=== PATIENT | female | born 1975 | race American Indian/Alaskan Native ===

== ENCOUNTER 2016-10-03 17:30 | Emergency (ER) | payer MEDICAID ==
[2016-10-03 18:10] LABS: Bilirubin,Urine NEG (Negative); Blood,Urine LG (Negative); Ketones,Urine NEG (Negative); Leukocyte Esterase,Urine TR (Negative); Mucus,Urine 3+ /HPF; Nitrite,Urine NEG (Negative); Urobilinogen,Urine < 2.0 mg/dL (<2.0)
[2016-10-03 18:11] LABS: Basophils % (Auto) 0.3 % (0.0-1.8); Hematocrit 37.5 % (30.3-42.9); Hemoglobin 12.3 gm/dl (10.1-14.3); Mean Corpuscular HGB Conc 33 % (30-34); Mean Corpuscular Hemoglobin 29 pg (28-32); Mean Corpuscular Volume 88 fl (79-97); Platelet Count 302 K/mm3 (140-440); Red Blood Count 4.24 M/mm3 (3.65-5.03); Red Cell Distribution Width 16.3 % (13.2-15.2); White Blood Count 13.9 K/mm3 (4.5-11.0)
[2016-10-03 18:13] LABS: Protein,Urine >500 mg/dL (Negative); RBC,Urine > 182.0 /HPF (0.0-6.0)
[2016-10-03] MEDS ORDERED: MORPHINE IM PRN (18:19)
[2016-10-03] MEDS ORDERED: ZOFRAN IM PRN (18:19)
[2016-10-03] MEDS ORDERED: ZOFRAN IV ONE (18:24)
[2016-10-03] MEDS ORDERED: TORADOL ONE (18:25)
--- NOTE | 2016-10-03 18:25 | Emergency Department Report ---
HPI - General Chief Complaint: Vaginal Bleeding Time Seen by Provider: 10/03/16 18:07 - HPI HPI: Room 2 The patient is a 41-year-old female presenting with a chief complaint of right pelvic pain and vaginal bleeding. Patient states she's had right pelvic pain intermittently for months but return to days ago. Patient describes the pain as a pressure. The patient states 2 days ago she developed vaginal bleeding that was having. The patient states she went to 18 pads yesterday. The patient gives her pain score of 10/10. Patient also admits to nausea Location: Pelvis Duration: 2 days Quality: Pressure Severity: 10/10 Modifying factors: [see above] Context: [see above] Mode of transportation: Patient drove herself to the emergency department and currently no visitors present. The patient states she is contacting a family member to come to the hospital ED Past Medical Hx - Past Medical History Previous Medical History?: No - Surgical History Hx Cholecystectomy: Yes Hx Appendectomy: Yes Additional Surgical History: Right salpingectomy secondary to ectopic , left ovarian cyst removal, lysis of adhesions, - Family History Family history: no significant - Social History Smoking Status: Current Every Day Smoker Substance Use Type: Alcohol (occasional), Marijuana - Medications Home Medications: Home Medications Medication Instructions Recorded Confirmed Last Taken Type HYDROcodone/APAP 5-325 [[place] 1 each PO Q6HR PRN #14 tablet 10/03/16 Unknown Rx 5/325] Ibuprofen [Motrin 800 MG tab] 800 mg PO Q8HR PRN #20 tablet 10/03/16 Unknown Rx ED Review of Systems ROS: Stated complaint: ABD PAIN/VAGINAL BLEEDING/VOMITING Other details as noted in HPI Comment: All other systems reviewed and negative Constitutional: denies: chills, fever Eyes: denies: eye pain, eye discharge, vision change ENT: denies: ear pain, throat pain Respiratory: denies: cough, shortness of breath, wheezing Cardiovascular: denies: chest pain, palpitations Endocrine: no symptoms reported Gastrointestinal: abdominal pain, nausea, vomiting Genitourinary: abnormal menses Musculoskeletal: back pain Skin: denies: rash, lesions Neurological: denies: headache, weakness, paresthesias Psychiatric: denies: anxiety, depression Hematological/Lymphatic: denies: easy bleeding, easy bruising Physical Exam - Physical Exam Vital Signs: Vital Signs 10/03/16 17:34 Temperature 98.9 F Pulse Rate 87 Respiratory 20 Rate Blood Pressure 136/94 O2 Sat by Pulse 98 Oximetry Physical Exam: GENERAL: The patient is well-developed well-nourished female lying on stretcher appearing to be in mild discomfort. [] HEENT: Normocephalic. Atraumatic. Extraocular motions are intact. Patient has moist mucous membranes. NECK: Supple. Trachea midline CHEST/LUNGS: Clear to auscultation. There is no respiratory distress noted. HEART/CARDIOVASCULAR: Regular. There is no tachycardia. There is no gallop rub or murmur. ABDOMEN: Abdomen is soft, with mild discomfort to palpation in the right upper quadrant and right lower quadrant. Patient has normal bowel sounds. There is no abdominal distention. SKIN: There is no rash. There is no edema. There is no diaphoresis. NEURO: The patient is awake, alert, and oriented. The patient is cooperative. The patient has normal speech MUSCULOSKELETAL: There is no CVA tenderness. There is no evidence of acute injury. PELVIC: zero to scant blood seen in the vaginal vault ED Course Vital Signs 10/03/16 17:34 Temperature 98.9 F Pulse Rate 87 Respiratory 20 Rate Blood Pressure 136/94 O2 Sat by Pulse 98 Oximetry - Consultations Consultation #1: 10/03/16 21:25 LEATHER DRESSER paged 21:41 Case discussed with LEATHER DRESSER Dr. Brasher. Will evaluate patient. 23:[address] Brasher after she has evaluated patient. States the patient may go home and will likely follow-up with her 10/03/16 21:43 10/03/16 23:06 ED Medical Decision Making - Lab Data Result diagrams: 10/03/16 17:44 Laboratory Tests 10/03/16 10/03/16 10/03/16 17:44 17:45 17:50 WBC 13.9 H RBC 4.24 Hgb 12.3 Hct 37.5 MCV 88 MCH 29 MCHC 33 RDW 16.3 H Plt Count 302 Lymph % (Auto) 22.1 [place] % (Auto) 9.4 H Eos % (Auto) 0.0 Baso % (Auto) 0.3 Lymph # 3.1 [place] # 1.3 H Eos # 0.0 Baso # 0.0 Seg Neutrophils % 68.2 Seg Neutrophils # 9.5 H Urine Color Yellow Urine Turbidity Turbid Urine pH 5.0 Ur Specific [place] 1.034 H Urine Protein >500 Urine Glucose (UA) 50 Urine Ketones Neg Urine Blood Lg Urine Nitrite Neg Urine Bilirubin Neg Urine Urobilinogen < 2.0 Ur Leukocyte Esterase Tr Urine WBC (Auto) 77.0 H Urine RBC (Auto) > 182.0 Urine WBC Clumps 3+ Urine Mucus 3+ Urine HCG, Qual Negative Blood Type O POSITIVE Antibody Screen Negative - Radiology Data Radiology results: report reviewed (pelvic ultrasound, CT abdomen and pelvis), image reviewed (pelvic ultrasound, CT abdomen and pelvis) Pelvic ultrasound (read by radiologist)-rim calcified fibroid at the posterior fundal margin the uterus measuring 3.5 cm. No other uterine lesions. The ovaries are not visualized. CT abdomen and pelvis (read by radiologist)-no gross inflammatory changes of the abdomen and pelvis. Large and small bowel is normal in caliber. Appendix is not visualized however there is no pericecal stranding or fluid to suggest acute inflammation. No obstructive uropathy or urolithiasis. Redemonstration of rim calcified fundal fibroid measuring 3.6 cm. - Differential Diagnosis ectopic , pyelonephritis, renal colic, ovarian torsion Critical care attestation.: If time is entered above; I have spent that time in minutes in the direct care of this critically ill patient, excluding procedure time. ED Disposition Clinical Impression: Pelvic pain, UTI (urinary tract infection) Disposition: DISCHARGED TO HOME OR SELFCARE Is pt being admited?: No Does the pt Need Aspirin: No Condition: Stable Instructions: Chronic Pelvic Pain in Women (ED) Additional Instructions: Return to the emergency department immediately should you develop worsening symptoms, fever, inability to tolerate food or liquid or any other concerns. Prescriptions: HYDROcodone/APAP 5-325 [[place] 5/325] 1 each PO Q6HR PRN #14 tablet PRN Reason: Pain Ibuprofen [Motrin 800 MG tab] 800 mg PO Q8HR PRN #20 tablet PRN Reason: Pain Referrals: PRIMARY CARE, [Primary Care Provider] - 3-5 Days Time of Disposition: 23:08
[2016-10-03] MEDS ORDERED: TORADOL IV ONE (18:27)
[2016-10-03] MEDS ORDERED: REGLAN ONE (19:19)
[2016-10-03] MEDS ORDERED: REGLAN IV ONE (19:21)
--- NOTE | 2016-10-03 19:23 | Ultrasound Report ---
FINAL REPORT EXAM: US PELVIC COMPLETE HISTORY: vaginal bleeding, right pelvic pain COMPARISON: None available. TECHNIQUE: Several real-time grayscale and color Doppler images were obtained. Transabdominal and transvaginal exam. FINDINGS: Uterus measures 12.1 x 8.3 x 7.9 centimeters. Endometrial stripe measures 8-9 millimeters in thickness within normal limits. At the posterior fundal margin the uterus is a partially calcified fibroid measuring 3.2 by 3.1 by 3.5 centimeters. No other uterine lesions. 1.5 centimeter nabothian cyst in the cervix, benign finding. No adnexal masses are demonstrated. The ovaries are not visualized. No free fluid. IMPRESSION: Rim calcified fibroid at the posterior and fundal margin the uterus measuring 3.5 centimeters. No other uterine lesions. The ovaries are not visualized.
--- NOTE | 2016-10-03 20:01 | Cat Scan Report ---
FINAL REPORT EXAM: CT ABDOMEN PELVIS WO CON HISTORY: right lower quadrant pain, nausea vomiting COMPARISON: Pelvic ultrasound from today. TECHNIQUE: Contiguous axial images were obtained. Additional sagittal and coronal reformatted images were obtained. FINDINGS: Lung bases are clear. Gallbladder surgically absent. Liver, spleen, pancreas and adrenal glands are grossly unremarkable. No nephrolithiasis or hydronephrosis. 1.2 centimeter medial left renal cyst. Aorta and IVC are normal in caliber. No distal ureteral urinary bladder calculi. Uterus is enlarged with rim calcified fibroid along the fundal region of the uterus as seen on earlier ultrasound measuring approximately 3.6 x 3.0 centimeters. Re-demonstration of nabothian cyst in the cervix. Ovaries are not well visualized. No free fluid or pathologic lymphadenopathy. Large and small bowel loops normal in caliber. Majority of bowel loops are decompressed. Appendix is not visualized. However, there is no pericecal stranding or fluid to suggest acute inflammation. Bony pelvis and lumbar spine are grossly intact. IMPRESSION: No gross inflammatory changes of the abdomen and pelvis. Large and small bowel loops normal in caliber. Appendix is not visualized. However, there is no pericecal stranding or fluid to suggest acute inflammation. No obstructive uropathy or urolithiasis. Re-demonstration of rim calcified fundal fibroid measuring 3.6 centimeters.
[2016-10-03] MEDS ORDERED: BACTRIM DS PO ONE (21:45)
[2016-10-03] MEDS ORDERED: PHENERGAN PO ONE (21:45)
--- NOTE | 2016-10-03 23:12 | Consultation ---
History of Present Illness - Reason for Consult Consult date: 10/03/16 abdominal pain Requesting physician: ANGEL TEMPLETON - History of Present Illness 41y/o BF presents to the ED with the complaint of RLQ pain. She reports a history of this pain for the last 4 months but states increased intensity with her menses. Has regular menses that lasts 3 days. States this menses was much heavier than usual with passage of clots. The patient has been evaluated by community nutrition educator was placed on meds to control her bleeding. The patient is unsure of name of the medication. Surgical options had been discussed with the patient. She also complains of nausea and vomiting. CT scan and u/s demonstrated findings of a myoma. Ovaries could not be identified Past History Past Medical History: No medical history Past Surgical History: appendectomy, cholecystectomy, Other (salpingectomy for ectopic ) Medications and Allergies Allergies Allergy/AdvReac Type Severity Reaction Status Date / Time amoxicillin Allergy Unknown Verified 10/03/16 17:34 Penicillins Allergy Unknown Verified 10/03/16 17:34 Tetracyclines Allergy Unknown Verified 10/03/16 17:34 Active Meds: Active Medications Morphine Sulfate (Morphine) 8 mg IM ONCE PRN PRN Reason: Pain Last Admin: 10/03/16 19:40 Dose: 8 mg Review of Systems All systems: negative Gastrointestinal: nausea, vomiting Genitourinary Female: pelvic pain, other (menorrhagia) Menstruation: currently menstrual, menses 1-7 days Musculoskeletal: low back pain Exam - Constitutional Vitals: Temp Pulse Resp BP Pulse Ox 98.9 F 87 22 150/93 99 10/03/16 17:34 10/03/16 17:34 10/03/16 18:39 10/03/16 18:36 10/03/16 18:39 General appearance: Present: mild distress - Respiratory Respiratory effort: normal - Abdominal General gastrointestinal: Present: soft, other (RLQ with deep palpation; no guarding). Absent: rigid Female genitourinary: Present: deferred Results - Labs CBC & Chem 7: 10/03/16 17:44 Labs: Abnormal lab results 10/03/16 10/03/16 Range/Units 17:44 17:50 WBC 13.9 H (4.5-11.0) K/mm3 RDW 16.3 H (13.2-15.2) % Gregory % (Auto) 9.4 H (0.0-7.3) % Gregory # 1.3 H (0.0-0.8) K/mm3 Seg Neutrophils # 9.5 H (1.8-7.7) K/mm3 Ur Specific [place] 1.034 H (1.003-1.030) Urine WBC (Auto) 77.0 H (0.0-6.0) /HPF Assessment and Plan - Patient Problems (1) Pelvic pain Current Visit: Yes Status: Acute Plan to address problem: patient is clinically stable with improvement in symptoms medical and surgical options discussed with patient recommend outpatient evaluation hospitalization is not indicated (2) Dysmenorrhea Current Visit: Yes Status: Acute (3) Menorrhagia Current Visit: Yes Status: Acute (4) Leiomyoma Current Visit: Yes Status: Acute
[2016-10-03 23:32] VITALS: BP 181/79
== END 2016-10-03 23:33 | disposition home or self-care (01) ==
LOC: ED 17:30
DX: N39.0 Urinary tract infection, site not specified (principal); Z90.49 Acquired absence of other specified parts of digestive tract; F17.200 Nicotine dependence, unspecified, uncomplicated; F12.10 Cannabis abuse, uncomplicated
CPT/HCPCS: 36415; 74176; 76830; 76856; 81001; 81025; 85025; 86850; 86900; 86901; 96372; 96374; 96375; 99284; J1885; J2270; J2405; J2765; Q0169

== ENCOUNTER 2017-01-20 22:22 | Emergency (ER) | payer SELFPAY ==
[2017-01-20 23:05] LABS: Basophils % (Auto) 0.4 % (0.0-1.8); Eosinophils % (Auto) 0.2 % (0.0-4.3); Hematocrit 37.3 % (30.3-42.9); Hemoglobin 12.2 gm/dl (10.1-14.3); Mean Corpuscular HGB Conc 33 % (30-34); Mean Corpuscular Hemoglobin 30 pg (28-32); Mean Corpuscular Volume 91 fl (79-97); Platelet Count 278 K/mm3 (140-440); Red Blood Count 4.09 M/mm3 (3.65-5.03); Red Cell Distribution Width 14.6 % (13.2-15.2); White Blood Count 10.7 K/mm3 (4.5-11.0)
[2017-01-20 23:34] LABS: Alanine Aminotransferase 12 units/L (7-56); Albumin 4.4 g/dL (3.9-5); Albumin/Globulin Ratio 1.4 %; Alkaline Phosphatase 68 units/L (35-129); Anion Gap 21 mmol/L; BUN/Creatinine Ratio 24.44; Blood Urea Nitrogen 22 mg/dL (7-17); Carbon Dioxide 23 mmol/L (22-30); Chloride 98.6 mmol/L (98-107); Glucose 205 mg/dL (65-100); Potassium 3.2 mmol/L (3.6-5.0); Sodium 139 mmol/L (137-145); Total Protein 7.6 g/dL (6.3-8.2)
--- NOTE | 2017-01-21 01:53 | Emergency Department Report ---
ED General Adult HPI - General Chief complaint: Abdominal Pain Stated complaint: VAGINAL BLEEDING/ABD PAIN/DIZZY Time Seen by Provider: 01/21/17 01:52 Source: patient, RN notes reviewed Mode of arrival: Ambulatory Limitations: No Limitations - History of Present Illness Initial comments: This is a 41-year-old female. She is previously unknown to me. She reports that she does not have a primary care doctor. She does not have a local intermodal owner operator truck driver. She denies significant past medical history. Surgical history includes appendectomy, right salpingectomy, left ovarian cyst, lysis of adhesions The patient presents to the ER with diffuse abdominal pain, nausea, vomiting, vaginal bleeding. The abdominal pain is crampy in nature. Its been going on for the past few days. It does not radiate anywhere. He has no exacerbating or relieving factors. Emesis is yellow, nonbloody and nonbilious. She denies irritative and obstructive urinary symptoms. She denies vaginal discharge. -: Gradual Location: abdomen, pelvis, genitals Quality: aching Consistency: intermittent Improves with: rest Worsens with: eating, movement Associated Symptoms: loss of appetite, malaise, nausea/vomiting, weakness. denies: confusion, chest pain - Related Data Previous Rx's Medication Instructions Recorded Last Taken Type HYDROcodone/APAP 5-325 [[place] 1 each PO Q6HR PRN #14 tablet 10/03/16 Unknown Rx 5/325] Ibuprofen [Motrin 800 MG tab] 800 mg PO Q8HR PRN #20 tablet 10/03/16 Unknown Rx Sulfamethoxazole/Trimethoprim 1 each PO BID #20 tablet 10/03/16 Unknown Rx [Bactrim DS TAB] Ketorolac [Toradol] 10 mg PO Q6H PRN #20 tablet 01/21/17 Unknown Rx Ondansetron [Zofran Odt] 4 mg PO QID PRN #20 tab.rapdis 01/21/17 Unknown Rx oxyCODONE [Roxicodone] 5 mg PO Q6HR PRN #15 tablet 01/21/17 Unknown Rx Allergies Allergy/AdvReac Type Severity Reaction Status Date / Time amoxicillin Allergy Unknown Verified 10/03/16 17:34 Penicillins Allergy Unknown Verified 10/03/16 17:34 Tetracyclines Allergy Unknown Verified 10/03/16 17:34 ED Review of Systems ROS: Stated complaint: VAGINAL BLEEDING/ABD PAIN/DIZZY Other details as noted in HPI Constitutional: malaise. denies: fever Eyes: denies: vision change ENT: denies: epistaxis Respiratory: denies: cough Cardiovascular: denies: chest pain Gastrointestinal: abdominal pain, nausea Genitourinary: dysuria, abnormal menses Musculoskeletal: denies: back pain Skin: denies: lesions Neurological: weakness Psychiatric: anxiety ED Past Medical Hx - Past Medical History Previous Medical History?: No - Surgical History Past Surgical History?: Yes Hx Cholecystectomy: Yes Hx Appendectomy: Yes Additional Surgical History: Right salpingectomy secondary to ectopic , left ovarian cyst removal, lysis of adhesions, - Social History Smoking Status: Current Every Day Smoker Substance Use Type: None - Medications Home Medications: Home Medications Medication Instructions Recorded Confirmed Last Taken Type HYDROcodone/APAP 5-325 [[place] 1 each PO Q6HR PRN #14 tablet 10/03/16 Unknown Rx 5/325] Ibuprofen [Motrin 800 MG tab] 800 mg PO Q8HR PRN #20 tablet 10/03/16 Unknown Rx Sulfamethoxazole/Trimethoprim 1 each PO BID #20 tablet 10/03/16 Unknown Rx [Bactrim DS TAB] Ketorolac [Toradol] 10 mg PO Q6H PRN #20 tablet 01/21/17 Unknown Rx Ondansetron [Zofran Odt] 4 mg PO QID PRN #20 tab.rapdis 01/21/17 Unknown Rx oxyCODONE [Roxicodone] 5 mg PO Q6HR PRN #15 tablet 01/21/17 Unknown Rx ED Physical Exam - General Limitations: No Limitations General appearance: alert, in distress - Head Head exam: Present: atraumatic, normocephalic - Eye Eye exam: Present: normal appearance, EOMI. Absent: nystagmus - ENT ENT exam: Present: normal exam, normal orophraynx, mucous membranes moist, normal external ear exam - Neck Neck exam: Present: normal inspection, full ROM. Absent: tenderness, meningismus - Respiratory Respiratory exam: Present: normal lung sounds bilaterally. Absent: respiratory distress, wheezes, rales, rhonchi, stridor, chest wall tenderness, accessory muscle use, decreased breath sounds, prolonged expiratory - Cardiovascular Cardiovascular Exam: Present: regular rate, normal rhythm, normal heart sounds. Absent: bradycardia, tachycardia, irregular rhythm, systolic murmur, diastolic murmur, rubs, gallop - GI/Abdominal GI/Abdominal exam: Present: soft, normal bowel sounds. Absent: distended, tenderness, guarding, rebound, rigid, pulsatile mass - External exam: Present: normal external exam Speculum exam: Present: vaginal bleeding Bi-manual exam: Present: normal bi-manual exam, other (escorted by MAYA Deluca). Absent: cervical motion tendernes, adnexal tenderness, adnexal mass - Extremities Exam Extremities exam: Present: normal inspection, full ROM, normal capillary refill. Absent: tenderness, pedal edema, joint swelling, calf tenderness - Back Exam Back exam: Present: normal inspection, full ROM. Absent: tenderness, CVA tenderness (R), CVA tenderness (L), muscle spasm, paraspinal tenderness, vertebral tenderness - Neurological Exam Neurological exam: Present: alert, oriented X3, normal gait, other (Extraocular movements intact. Tongue midline. No facial droop. Facial sensation intact to light touch in the V1, V2, V3 distribution bilaterally. 5 and 5 strength in 4 extremities.. Sensation is intact to light touch in 4 extremities.). Absent : motor sensory deficit - Psychiatric Psychiatric exam: Present: anxious - Skin Skin exam: Present: warm, dry, intact, normal color. Absent: rash ED Course Vital Signs 01/20/17 01/21/17 01/21/17 22:43 02:00 02:11 Temperature 99.0 F Pulse Rate 75 Respiratory 24 Rate Blood Pressure 133/104 144/87 O2 Sat by Pulse 100 100 100 Oximetry 01/21/17 02:21 Temperature Pulse Rate Respiratory Rate Blood Pressure 148/89 O2 Sat by Pulse 100 Oximetry - Reevaluation(s) Reevaluation #1: 01/21/17 02:59 Differential diagnosis: Dysfunctional uterine bleeding, endometriosis, bowel obstruction Assessment and plan: 41-year-old female with abdominal pain, nausea, vomiting, vaginal bleeding. She is getting a low-grade temperature of 99, otherwise has reassuring vital signs and an unremarkable physical examination. Her abdomen is soft and benign, with no rebound, guarding or peritoneal signs. Lower, she appears to be very uncomfortable. She will be treated aggressively. We will obtain a pelvic ultrasound and a CT scan of the abdomen and pelvis. We will reassess after initial data points. Reevaluation #2: 01/21/17 04:[address] scan of the abdomen pelvis demonstrated numerous fibroids. Pelvic ultrasound demonstrates fibroids. Given lack of adnexal tenderness, clinically I don't think the patient has torsion. Her pain is improved. She will be discharged pain medication, nausea medication, instructions to follow up with outpatient gynecology. ED Medical Decision Making - Lab Data Result diagrams: 01/20/17 22:52 01/20/17 22:52 Vital Signs 01/20/17 01/21/17 01/21/17 22:43 02:00 02:11 Temperature 99.0 F Pulse Rate 75 Respiratory 24 Rate Blood Pressure 133/104 144/87 O2 Sat by Pulse 100 100 100 Oximetry 01/21/17 02:21 Temperature Pulse Rate Respiratory Rate Blood Pressure 148/89 O2 Sat by Pulse 100 Oximetry Temp Pulse Resp BP Pulse Ox 99.0 F 75 24 148/89 100 01/20/17 22:43 01/20/17 22:43 01/20/17 22:43 01/21/17 02:21 01/21/17 02:21 Labs 01/20/17 01/20/17 01/21/17 22:52 22:52 01:27 WBC 10.7 RBC 4.09 Hgb 12.2 Hct 37.3 MCV 91 MCH 30 MCHC 33 RDW 14.6 Plt Count 278 Lymph % (Auto) 24.2 [place] % (Auto) 5.0 Eos % (Auto) 0.2 Baso % (Auto) 0.4 Lymph # 2.6 [place] # 0.5 Eos # 0.0 Baso # 0.0 Seg Neutrophils % 70.2 H Seg Neutrophils # 7.5 Sodium 139 Potassium 3.2 L Chloride 98.6 Carbon Dioxide 23 Anion Gap 21 BUN 22 H Creatinine 0.9 Estimated GFR > 60 BUN/Creatinine Ratio 24.44 Glucose 205 H Calcium 9.0 Total Bilirubin 0.30 AST 14 ALT 12 Alkaline Phosphatase 68 Total Protein 7.6 Albumin 4.4 Albumin/Globulin Ratio 1.4 HCG, Quant Urine Color Red Urine Turbidity Cloudy Urine pH 6.0 Ur Specific [place] 1.030 Urine Protein 100 mg/dl Urine Glucose (UA) 50 Urine Ketones Neg Urine Blood Lg Urine Nitrite Neg Ur Reducing Substances Not Reportable Urine Bilirubin Neg Urine Ictotest Not Reportable Urine Urobilinogen < 2.0 Ur Leukocyte Esterase Sm Urine WBC (Auto) > 182.0 H Urine RBC (Auto) > 182.0 U Epithel Cells (Auto) 6.0 Urine Mucus 2+ Urine HCG, Qual Negative Urine Opiates Screen Urine Methadone Screen Ur Barbiturates Screen Ur Phencyclidine Scrn Ur Amphetamines Screen U Benzodiazepines Scrn Urine Cocaine Screen U Marijuana (THC) Screen 01/21/17 01/21/17 01:45 Unknown WBC RBC Hgb Hct MCV MCH MCHC RDW Plt Count Lymph % (Auto) [place] % (Auto) Eos % (Auto) Baso % (Auto) Lymph # [place] # Eos # Baso # Seg Neutrophils % Seg Neutrophils # Sodium Potassium Chloride Carbon Dioxide Anion Gap BUN Creatinine Estimated GFR BUN/Creatinine Ratio Glucose Calcium Total Bilirubin AST ALT Alkaline Phosphatase Total Protein Albumin Albumin/Globulin Ratio HCG, Quant < 2 Urine Color Urine Turbidity Urine pH Ur Specific [place] Urine Protein Urine Glucose (UA) Urine Ketones Urine Blood Urine Nitrite Ur Reducing Substances Urine Bilirubin Urine Ictotest Urine Urobilinogen Ur Leukocyte Esterase Urine WBC (Auto) Urine RBC (Auto) U Epithel Cells (Auto) Urine Mucus Urine HCG, Qual Urine Opiates Screen Presumptive negative Urine Methadone Screen Presumptive negative Ur Barbiturates Screen Presumptive positive Ur Phencyclidine Scrn Presumptive negative Ur Amphetamines Screen Presumptive negative U Benzodiazepines Scrn Presumptive negative Urine Cocaine Screen Presumptive negative U Marijuana (THC) Screen Presumptive positive - EKG Data -: EKG Interpreted by In - EKG Data 01/21/17 03:00 Normal sinus, 69 beats per minute, motion artifact, QTC 477 ms, not morphologically consistent with STEMI, there is no prior EKG available for comparison. - Radiology Data Radiology results: report reviewed, image reviewed Noncontrast CT scan of the abdomen and pelvis: No acute disease. Fibroid disease noted. Transvaginal ultrasound demonstrates numerous fibroids. Critical care attestation.: If time is entered above; I have spent that time in minutes in the direct care of this critically ill patient, excluding procedure time. ED Disposition Clinical Impression: Dysmenorrhea, Pelvic pain, Leiomyoma Disposition: DISCHARGED TO HOME OR SELFCARE Is pt being admited?: No Does the pt Need Aspirin: No Condition: Stable Instructions: Uterine Fibroids (ED) Additional Instructions: Cultures were sent today, results will be available in the next 3-5 days. Have your intermodal owner operator truck driver contact the medical records department to obtain culture results. Take the pain medication, nausea medication as directed. Follow-up with a intermodal owner operator truck driver within the next week. Laboratory studies were unremarkable. Ultrasound and CAT scan have suggested that symptoms are coming from symptomatic fibroids. Return to the ER right away with new pain, worsening pain, migration of pain, fevers or chills, intractable nausea or vomiting, inability to tolerate liquid feeds. Referrals: PRIMARY CAREMD [Primary Care Provider] - 3-5 Days [facility] [Provider Group] - 3-5 Days [facility] [Provider Group] - 3-5 Days [facility] [Provider Group] - 3-5 Days
[2017-01-21] MEDS ORDERED: PEPCID IV ONE (01:59)
[2017-01-21] MEDS ORDERED: MORPHINE IV ONE (01:59)
[2017-01-21] MEDS ORDERED: ZOFRAN IV ONE (01:59)
[2017-01-21 02:18] LABS: Urine Drugs of Abuse Note Disclamer
[2017-01-21 02:33] VITALS: BP 148/89
[2017-01-21 02:40] LABS: Bilirubin,Urine NEG (Negative); Blood,Urine LG (Negative); Ketones,Urine NEG (Negative); Leukocyte Esterase,Urine SM (Negative); Mucus,Urine 2+ /HPF; Nitrite,Urine NEG (Negative); Urobilinogen,Urine < 2.0 mg/dL (<2.0)
[2017-01-21 02:50] LABS: RBC,Urine > 182.0 /HPF (0.0-6.0); WBC,Urine > 182.0 /HPF (0.0-6.0)
[2017-01-21] MEDS ORDERED: TORADOL IV ONE (02:51)
[2017-01-21] MEDS ORDERED: K-DUR PO ONE (02:51)
[2017-01-21] MEDS: KCL 10MEQ/100ML 10 MEQ/100 ML BAG IV SCH ×2 (03:38→05:02)
--- NOTE | 2017-01-21 03:40 | Ultrasound Report ---
FINAL REPORT PROCEDURE: US TRANSVAGINAL TECHNIQUE: Real-time transabdominal sonography in multiple planes of the pelvis was performed. The pelvic structures, especially the ovaries were not optimally visualized. Transvaginal sonography was then performed to better evaluate the structures and/or abnormalities described below with image documentation. [place] [address] [place] [address] HISTORY: pelvic pain bleeding COMPARISON: No prior studies are available for comparison. FINDINGS: UTERUS Size: 13.6 x 7.8 x 7 cm. Endometrial thickness: 11 mm. Orientation: anteverted. Cervix: Normal. Fibroids/masses: There are a few fibroids identified within the uterine myometrium the largest near the fundus of the uterus measures approximately 3.6 centimeters. There is a pedunculated fibroid off the uterus measuring 18 x 19 x 13 millimeters.. RIGHT Ovary: 2.8 x 2.3 x 2.4 cm. Appearance: Normal. LEFT Ovary: Not well visualized on this study. Pelvic fluid: None. Other: None. IMPRESSION: Slightly enlarged uterus with fibroid formation. A pedunculated polyp up the uterus measures up to 19 millimeters. The right ovary has a normal appearance. The left ovary is not properly visualized on this study.
--- NOTE | 2017-01-21 03:41 | Ultrasound Report ---
FINAL REPORT PROCEDURE: US transabdominal and transvaginal TECHNIQUE: Real-time transabdominal sonography in multiple planes of the pelvis was performed. The pelvic structures, especially the ovaries were not optimally visualized. Transvaginal sonography was then performed to better evaluate the structures and/or abnormalities described below with image documentation. CPT 72994 and 43783 HISTORY: pelvic pain bleeding COMPARISON: 10/03/2016 FINDINGS: UTERUS Size: 13.6 x 7.8 x 7 cm. Endometrial thickness: 11 mm. Orientation: anteverted. Cervix: Normal. Fibroids/masses: There are a few fibroids identified within the uterine myometrium the largest near the fundus of the uterus measures approximately 3.6 centimeters. There is a pedunculated fibroid off the uterus measuring 18 x 19 x 13 millimeters.. RIGHT Ovary: 2.8 x 2.3 x 2.4 cm. Appearance: Normal. LEFT Ovary: Not well visualized on this study. Pelvic fluid: None. Other: None. IMPRESSION: Slightly enlarged uterus with fibroid formation. A pedunculated polyp up the uterus measures up to 19 millimeters. The right ovary has a normal appearance. The left ovary is not properly visualized on this study.
[2017-01-21] MEDS ORDERED: DILAUDID ONE (03:56)
--- NOTE | 2017-01-21 03:59 | Cat Scan Report ---
FINAL REPORT PROCEDURE: CT ABDOMEN PELVIS WO CON TECHNIQUE: Computerized axial tomography of the abdomen and pelvis was performed without intravenous contrast. This study is performed without intravascular contrast material and its sensitivity for abdominal and pelvic pathology, including neoplasms, inflammation, abscess, free fluid, thrombosis, arterial dissection and infarction, is reduced compared with a contrast enhanced study. HISTORY: abd pain COMPARISON: No prior studies are available for comparison. FINDINGS: Visualized lower thorax: No significant abnormality. Liver: Normal size and attenuation. Spleen: Normal size and attenuation. Gallbladder and biliary system: Gallbladder is absent.. Pancreas: Normal. Adrenals: Normal. Kidneys: Kidneys have a normal size. No hydronephrosis. There is a small area of hypoattenuation off the medial left renal cortex is measures approximately 1 centimeter. A cyst is suspected. This is not fully evaluated on this study.. GI tract: The stomach is normal. The small bowel has a normal caliber. No obstruction, ileus or enteritis. The cecum appendix region and colon are normal.. Lymph nodes and mesentery: Normal. Vasculature: Normal. Bladder: Normal. Reproductive organs: Uterus is enlarged. There are fibroids identified within the uterus, a posterior uterine myometrium fibroid is calcified. There is a fibroid off the anterior uterus. No adnexal masses.. Peritoneum: No free fluid. Musculoskeletal structures: No significant abnormality. Other: None. IMPRESSION: There is no evidence of intestinal or urinary tract obstruction. No ileus or enteritis. The uterus is enlarged. There are fibroids identified within the uterus..
[2017-01-21] MEDS ORDERED: DILAUDID IV ONE (04:02)
== END 2017-01-21 06:36 | disposition home or self-care (01) ==
LOC: ED 22:22
DX: N94.6 Dysmenorrhea, unspecified (principal); R10.2 Pelvic and perineal pain; D21.9 Benign neoplasm of connective and other soft tissue, unspecified; F17.200 Nicotine dependence, unspecified, uncomplicated; Z90.49 Acquired absence of other specified parts of digestive tract; Z90.89 Acquired absence of other organs; Z88.0 Allergy status to penicillin; Z88.1 Allergy status to other antibiotic agents
CPT/HCPCS: 36415; 74176; 76830; 80053; 80307; 81001; 81025; 83735; 84702; 85025; 87210; 87591; 93005; 93010; 93975; 96374; 96375; 99285; J1170; J1885; J2270; J2405; J3480

== ENCOUNTER 2020-05-15 14:33 | Emergency (ER) | payer SELFPAY ==
[2020-05-15] MEDS ORDERED: ASPIRIN 325 MG TAB PO ONE (15:15)
--- NOTE | 2020-05-15 16:28 | XRay Report ---
CHEST 2 VIEWS INDICATION / CLINICAL INFORMATION: Acute chest pain beginning just prior to arrival to Emergency Department. COMPARISON: None available. FINDINGS: SUPPORT DEVICES: None. HEART / MEDIASTINUM: No significant abnormality. LUNGS / PLEURA: No significant pulmonary or pleural abnormality. No pneumothorax. ADDITIONAL FINDINGS: No significant additional findings. IMPRESSION: 1. No acute abnormality of the chest. Signer Name: Angel Souza MD Signed: 05/15/2020 4:23 PM Workstation Name: [id number]
[2020-05-15 16:45] LABS: Blood Urea Nitrogen 9 mg/dL (7-17); Calcium 8.6 mg/dL (8.4-10.2); Hemolysis Index 5
[2020-05-15 16:46] LABS: BUN/Creatinine Ratio 13
[2020-05-15] MEDS ORDERED: KETOROLAC 30 MG/1 ML INJ IV ONE (17:02)
[2020-05-15 17:21] LABS: Basophils % (Auto) 0.5 % (0.0-1.8); Eosinophils # (Auto) 0.2 K/mm3 (0.0-0.4); Eosinophils % (Auto) 2.4 % (0.0-4.3); Hematocrit 28.4 % (30.3-42.9); Hemoglobin 8.6 gm/dl (10.1-14.3); Lymphocytes # (Auto) 2.7 K/mm3 (1.2-5.4); Lymphocytes % (Auto) 34.9 % (13.4-35.0); Mean Corpuscular HGB Conc 30 % (30-34); Monocytes # (Auto) 0.6 K/mm3 (0.0-0.8); Monocytes % (Auto) 8.1 % (0.0-7.3); Platelet Count 358 K/mm3 (140-440); Red Blood Count 4.06 M/mm3 (3.65-5.03); Red Cell Distribution Width 19.4 % (13.2-15.2)
[2020-05-15 17:22] LABS: Mean Corpuscular Volume 70 fl (79-97)
--- NOTE | 2020-05-15 17:44 | XRay Report ---
CERVICAL SPINE 5 VIEWS INDICATION / CLINICAL INFORMATION: left arm pain. COMPARISON: None available. FINDINGS: VERTEBRAE: No acute fracture. No significant malalignment. DISC SPACES / FACET JOINTS:Mild multilevel degenerative changes are noted with uncovertebral joint hy pertrophy at the C5-C6 level. PARASPINAL SOFT TISSUES:No significant abnormality. ADDITIONAL FINDINGS: None. Signer Name: Fabian Aguilera MD Signed: 05/15/2020 5:40 PM Workstation Name: [id number]
--- NOTE | 2020-05-15 19:32 | Emergency Department Report ---
ED Chest Pain HPI - General Chief Complaint: Chest Pain Stated Complaint: CHEST PAIN Time Seen by Provider: 05/15/20 17:01 Source: patient Mode of arrival: Ambulatory Limitations: No Limitations - History of Present Illness Initial Comments: Patient is a 44-year-old F [place] female with past medical history of hypertension who is complaining of 3 days of progressively worsening left upper arm left trapezius pain. Patient states today the discomfort spread into the left chest. She denies cough cold congestion fevers chills. There is no exertional component to this discomfort. Pain is worse with movement and better with rest. She denies any heavy lifting. Severity scale (0 -10): 6 - Related Data Previous Rx's Medication Instructions Recorded Last Taken Type HYDROcodone/APAP 5-325 [[place] 1 each PO Q6HR PRN #14 tablet 10/03/16 Unknown Rx 5/325] Ibuprofen [Motrin 800 MG tab] 800 mg PO Q8HR PRN #20 tablet 10/03/16 Unknown Rx Sulfamethoxazole/Trimethoprim 1 each PO BID #20 tablet 10/03/16 Unknown Rx [Bactrim DS TAB] Ketorolac [Toradol] 10 mg PO Q6H PRN #20 tablet 01/21/17 Unknown Rx Ondansetron [Zofran Odt] 4 mg PO QID PRN #20 tab.rapdis 01/21/17 Unknown Rx oxyCODONE [Roxicodone] 5 mg PO Q6HR PRN #15 tablet 01/21/17 Unknown Rx Ketorolac [Toradol] 10 mg PO Q6H PRN #12 tablet 05/15/20 Unknown Rx methOCARBAMOL [Robaxin TAB] 500 mg PO Q6H PRN #14 tablet 05/15/20 Unknown Rx traMADoL [Ultram] 50 mg PO Q6HR PRN #12 tablet 05/15/20 Unknown Rx Allergies Allergy/AdvReac Type Severity Reaction Status Date / Time amoxicillin Allergy Unknown Verified 10/03/16 17:34 Penicillins Allergy Unknown Verified 10/03/16 17:34 Tetracyclines Allergy Unknown Verified 10/03/16 17:34 Heart Score - HEART Score History: Slightly suspicious EKG: Normal Age: < 45 Risk factors: 1-2 risk factors Troponin: < normal limit HEART Score: 1 ED Review of Systems ROS: Stated complaint: CHEST PAIN Other details as noted in HPI Comment: All other systems reviewed and negative ED Past Medical Hx - Surgical History Hx Cholecystectomy: Yes Hx Appendectomy: Yes Additional Surgical History: Right salpingectomy secondary to ectopic , left ovarian cyst removal, lysis of adhesions, - Social History Smoking Status: Current Every Day Smoker Substance Use Type: Alcohol - Medications Home Medications: Home Medications Medication Instructions Recorded Confirmed Last Taken Type HYDROcodone/APAP 5-325 [[place] 1 each PO Q6HR PRN #14 tablet 10/03/16 Unknown Rx 5/325] Ibuprofen [Motrin 800 MG tab] 800 mg PO Q8HR PRN #20 tablet 10/03/16 Unknown Rx Sulfamethoxazole/Trimethoprim 1 each PO BID #20 tablet 10/03/16 Unknown Rx [Bactrim DS TAB] Ketorolac [Toradol] 10 mg PO Q6H PRN #20 tablet 01/21/17 Unknown Rx Ondansetron [Zofran Odt] 4 mg PO QID PRN #20 tab.rapdis 01/21/17 Unknown Rx oxyCODONE [Roxicodone] 5 mg PO Q6HR PRN #15 tablet 01/21/17 Unknown Rx Ketorolac [Toradol] 10 mg PO Q6H PRN #12 tablet 05/15/20 Unknown Rx methOCARBAMOL [Robaxin TAB] 500 mg PO Q6H PRN #14 tablet 05/15/20 Unknown Rx traMADoL [Ultram] 50 mg PO Q6HR PRN #12 tablet 05/15/20 Unknown Rx ED Physical Exam - General Limitations: No Limitations General appearance: alert, in no apparent distress - Head Head exam: Present: atraumatic, normocephalic - Eye Eye exam: Present: normal appearance, PERRL, EOMI - ENT ENT exam: Present: mucous membranes moist - Neck Neck exam: Present: normal inspection - Respiratory Respiratory exam: Present: normal lung sounds bilaterally. Absent: respiratory distress, wheezes, rales, rhonchi - Cardiovascular Cardiovascular Exam: Present: regular rate, normal rhythm. Absent: systolic murmur, diastolic murmur, rubs, gallop - GI/Abdominal GI/Abdominal exam: Present: soft, normal bowel sounds. Absent: distended, t enderness, guarding, rebound - Extremities Exam Extremities exam: Present: normal inspection - Back Exam Back exam: Present: normal inspection - Neurological Exam Neurological exam: Present: alert, oriented X3 - Psychiatric Psychiatric exam: Present: normal affect, normal mood - Skin Skin exam: Present: warm, dry, intact, normal color. Absent: rash ED Course Vital Signs 05/15/20 05/15/20 14:36 18:01 Temperature 98.4 F Pulse Rate 109 H 88 Respiratory 17 Rate Blood Pressure 134/88 Blood Pressure 154/103 [Right] O2 Sat by Pulse 97 Oximetry ED Medical Decision Making - Lab Data Result diagrams: 05/15/20 15:50 05/15/20 15:50 Lab Results 05/15/20 05/15/20 05/15/20 Range/Units 15:50 15:50 18:29 WBC 7.9 (4.5-11.0) K/mm3 RBC 4.06 (3.65-5.03) M/mm3 Hgb 8.6 L (10.1-14.3) gm/dl Hct 28.4 L (30.3-42.9) % MCV 70 L (79-97) fl MCH 21 L (28-32) pg MCHC 30 (30-34) % RDW 19.4 H (13.2-15.2) % Plt Count 358 (140-440) K/mm3 Lymph % (Auto) 34.9 (13.4-35.0) % [place] % (Auto) 8.1 H (0.0-7.3) % Eos % (Auto) 2.4 (0.0-4.3) % Baso % (Auto) 0.5 (0.0-1.8) % Lymph # 2.7 (1.2-5.4) K/mm3 [place] # 0.6 (0.0-0.8) K/mm3 Eos # 0.2 (0.0-0.4) K/mm3 Baso # 0.0 (0.0-0.1) K/mm3 Seg Neutrophils % 54.1 (40.0-70.0) % Seg Neutrophils # 4.3 (1.8-7.7) K/mm3 Sodium 138 (137-145) mmol/L Potassium 3.5 L (3.6-5.0) mmol/L Chloride 101.6 (98-107) mmol/L Carbon Dioxide 21 L (22-30) mmol/L Anion Gap 19 mmol/L BUN 9 (7-17) mg/dL Creatinine 0.7 (0.6-1.2) mg/dL Estimated GFR > 60 ml/min BUN/Creatinine Ratio 13 % Glucose 97 (65-100) mg/dL Calcium 8.6 (8.4-10.2) mg/dL Troponin T < 0.010 < 0.010 (0.00-0.029) ng/mL - EKG Data -: EKG Interpreted by Co EKG shows normal: sinus rhythm, axis, intervals, QRS complexes, ST-T waves Rate: normal - EKG Data Interpretation: normal EKG - Radiology Data [facility] [address] [place] [address] XRay Report Signed Patient: TESSA SANDOVAL MR#: [id number] : 1975 Acct:[id number] Age/Sex: 44 / F ADM Date: 05/15/20 Loc: ED Attending Dr: Ordering Physician: NGOZI VILLA MD Date of Service: 05/15/20 Procedure(s): XR spine cervical 2-3V Accession Number(s): [id number] cc: NGOZI VILLA MD Fluoro Time In Minutes: CERVICAL SPINE 5 VIEWS INDICATION / CLINICAL INFORMATION: left arm pain. COMPARISON: None available. FINDINGS: VERTEBRAE: No acute fracture. No significant malalignment. DISC SPACES / FACET JOINTS:Mild multilevel degenerative changes are noted with uncovertebral joint hypertrophy at the C5-C6 level. PARASPINAL SOFT TISSUES:No significant abnormality. ADDITIONAL FINDINGS: None. Signer Name: Fabian Aguilera MD Signed: 05/15/2020 5:40 PM Workstation Name: [id number] Ordering Physician: EMILY JOHNSON MD Date of Service: 05/15/20 Procedure(s): XR chest routine 2V Accession Number(s): [id number] cc: EMILY JOHNSON MD Fluoro Time In Minutes: CHEST 2 VIEWS INDICATION / CLINICAL INFORMATION: Acute chest pain beginning just prior to arrival to Emergency Department. COMPARISON: None available. FINDINGS: SUPPORT DEVICES: None. HEART / MEDIASTINUM: No significant abnormality. LUNGS / PLEURA: No significant pulmonary or pleural abnormality. No pneumothorax. ADDITIONAL FINDINGS: No significant additional findings. IMPRESSION: 1. No acute abnormality of the chest. Signer Name: Angel Souza MD Signed: 05/15/2020 4:23 PM Workstation Name: [id number] - Medical Decision Making Patient with some atypical chest discomfort. The majority of the patient's discomfort is actually in her left upper extremity. X-ray of the neck shows some degenerative changes. Patient to be discharged home with medication for symptomatic relief. Critical care attestation.: If time is entered above; I have spent that time in minutes in the direct care of this critically ill patient, excluding procedure time. ED Disposition Clinical Impression: Atypical chest pain, Cervical radicular pain Disposition: DC- TO HOME OR SELFCARE Is pt being admited?: No Does the pt Need Aspirin: No Condition: Stable Instructions: Cervical Radiculopathy (ED) Referrals: SUSANA DE JESUS II, MD [Staff Physician] - 3-5 Days Time of Disposition: 19:31
[2020-05-15] MEDS ORDERED: ONDANSETRON 4 MG/2 ML INJ ONE (20:04)
[2020-05-15 20:25] VITALS: BP 128/71
== END 2020-05-15 19:45 | disposition home or self-care (01) ==
LOC: ED 14:33
DX: R07.89 Other chest pain (principal); M54.12 Radiculopathy, cervical region; F17.200 Nicotine dependence, unspecified, uncomplicated; Z90.49 Acquired absence of other specified parts of digestive tract; Z98.890 Other specified postprocedural states; Z79.899 Other long term (current) drug therapy; Z88.0 Allergy status to penicillin; Z88.1 Allergy status to other antibiotic agents; Z88.8 Allergy status to other drugs, medicaments and biological substances
CPT/HCPCS: 36415; 71046; 72040; 80048; 84484; 85025; 93005; 96374; 99284; J1885; J2405

== ENCOUNTER 2020-10-05 19:52 | Emergency (ER) | payer SELFPAY | END 2020-10-05 20:16 | disposition left against medical advice (07) | LOC: ED 19:52 | DX: R10.30 Lower abdominal pain, unspecified (principal); Z53.21 Procedure and treatment not carried out due to patient leaving prior to being seen by health care provider ==